=== PATIENT | female | born 1965 | race Caucasian/White ===

== ENCOUNTER 2016-12-01 14:11 | Outpatient (RCR) | payer OTHER | END 2017-01-09 14:14 | disposition still patient (30) | LOC: WSOH 14:11 | DX: S63.501A Unspecified sprain of right wrist, initial encounter (principal); R20.0 Anesthesia of skin; R20.2 Paresthesia of skin; W01.0XXA Fall on same level from slipping, tripping and stumbling without subsequent striking against object, initial encounter ==

== ENCOUNTER → 2016-12-01 | Outpatient (REF) | LOC: WSOH 14:16 | DX: Z02.89 Encounter for other administrative examinations (principal) ==

== ENCOUNTER → 2016-12-01 | Outpatient (REF) | LOC: WSOH 14:13 | DX: Z02.89 Encounter for other administrative examinations (principal) ==

== ENCOUNTER 2016-12-11 14:13 | Outpatient (RCR) | payer OTHER | END 2016-12-30 07:48 | LOC: WSOH 14:13 | DX: S63.501A Unspecified sprain of right wrist, initial encounter (principal); R20.2 Paresthesia of skin; R20.0 Anesthesia of skin; W01.0XXA Fall on same level from slipping, tripping and stumbling without subsequent striking against object, initial encounter; Y99.0 Civilian activity done for income or pay; Z90.89 Acquired absence of other organs | CPT/HCPCS: 24091; A6549 ==

== ENCOUNTER 2018-02-05 14:26 | Outpatient (RCR) | payer OTHER | END 2018-04-12 07:57 | disposition home or self-care (01) | LOC: WSOH 14:26 | DX: S46.812A Strain of other muscles, fascia and tendons at shoulder and upper arm level, left arm, initial encounter (principal); X50.0XXA Overexertion from strenuous movement or load, initial encounter; Y93.G3 Activity, cooking and baking; Y92.219 Unspecified school as the place of occurrence of the external cause; Y99.0 Civilian activity done for income or pay; Z79.899 Other long term (current) drug therapy ==

== ENCOUNTER 2018-08-17 12:39 | Inpatient (IN) | payer BC ==
[~2018-08-17] VITALS: Ht 165.1 cm; Wt 105.2 kg
[2018-08-17] VITALS (10 sets, daily range): BP systolic 109–134; BP diastolic 50–74; PULSE 57–92; TEMP 97.5–97.7
--- NOTE | 2018-08-17 13:30 | NUR ---
PATIENT ARRIVED TO ROOM 348 VIA [facility]IA [facility]. PATIENT SETTELED INTO ROOM. FAMILY PRESENT AT THE BEDSIDE.
--- NOTE | 2018-08-17 13:49 | NUR ---
DR. LEES CALLED AND NOTIFIED OF PATIENT ARRIVAL. ADMISSIONS CALLED AND NOTIFIED OF ARRIVAL.
--- NOTE | 2018-08-17 15:20 | NUR ---
PATIENT ADMISSION ASSESSMENT COMPLETE. SEE ADMISSION B. VSS. NS AND LEVAQUIN TO GRAVITY TUBING AND INFUSING TO LEFT WRIST. PATIENT CONSENT FORM SIGNED AND ON PATIENT CHART. PATIENT TAKEN TO PERIOP VIA BED BY ANTHONY CHAVIRA. WILL WAIT FOR PATIENT ARRIVAL BACK TO ROOM 348.
--- NOTE | 2018-08-17 18:40 | NUR ---
PATIENT ARRIVED TO ROOM 348 VIA BED FROM PACU. PATIENT IS DROWSY BUT AROUSES EASILY TO NAME. PATIENT TOLERATING CLEAR LIQUIDS WITHOUT COMPLAINTS OF N/V. DINNER TRAY ORDERED. ABDOMINAL LAP SITES X4 DRESSED WITH BANDAIDS AND ARE CD&I. POST-OP VSS. FAMILY PRESENT AT THE BEDSIDE. CALL LIGHT WITHIN REACH. PATIENT DENIES ANY OTHER NEEDS AT THIS TIME.
--- NOTE | 2018-08-17 18:59 | NUR ---
REPORT GIVEN TO ANTHONY OLVERA.
--- NOTE | 2018-08-18 00:12 | NUR ---
Patient resting in bed with eyes closed at this time. C/o pain 6/10 to abdomen. PRN pain medication administered. Awaiting results. Patient has been up to the bathroom to void. Slight blood drainage noted to right lap site. Bandaid changed. Other sites remain free rom drainage. Denies any further needs. Will continue to monitor.
[2018-08-18 04:00] VITALS: BP 98/44; PULSE 61; TEMP 97.9
--- NOTE | 2018-08-18 04:12 | NUR ---
Patient resting in bed watching television. States she is having troubles sleeping. Denies pain except for when she coughs or moves. Requests and receives sprite. Denies any further needs.
[2018-08-18 06:14] LABS: BASO % 0.6 % (0.0-2.0); EOS # 0.2 (0.0-0.7); EOS % 2.9 % (0-4.0); GRAN # 4.9 (1.4-6.5); GRAN % 70.8 % (42.2-75.2); HEMOGLOBIN 11.5 g/dl (12.5-16.0); LYMPH # 1.2 (1.2-3.4); LYMPH % 17.5 % (20.0-51.0); MEAN CELL VOLUME 92 fl (80.0-100.0); MEAN CORPUSCULAR HEMOGLOBIN 30 pg (27.0-31.0); MEAN CORPUSCULAR HGB CONC 32 g/dl (33.0-37.0); MONO # 0.5 (0.1-0.6); MONO % 7.9 % (1.7-9.3); PLATELET COUNT 209 K/mm3 (130-400); RED BLOOD COUNT 3.89 M/mm3 (4.10-5.30); REDCELL DISTRIBUTION WIDTH-CV 13.7 % (11.5-14.5)
[2018-08-18 06:28] LABS: ALBUMIN 3.5 gm/dL (3.5-5.0); BILIRUBIN,TOTAL 0.9 mg/dL (0.0-1.0); CALCIUM 8.6 mg/dL (8.4-10.2); CREATININE, serum 0.98 (0.52-1.25); HEMATOCRIT 35.9 % (37.0-47.0); POTASSIUM 4.1 mmol/L (3.4-5.0); TOTAL PROTEIN 6.5 gm/dL (6.4-8.2)
--- NOTE | 2018-08-18 06:53 | NUR ---
Report given to ANTHONY Boothe.
[2018-08-18 07:58] VITALS: BP 110/53; PULSE 60; TEMP 98
--- NOTE | 2018-08-18 08:44 | NUR ---
PT RESTING IN BED, ASKING FOR PAIN MEDICATION. PO PAIN MEDS GIVEN ORDERED. PT REQUESTED TO SLEEP THIS AM, REPORTING THAT SHE DID NOT SLEEP MUCH LAST NIGHT. INFORMED PT OF POSSIBLE DISCHARGE LATER TO DAY AND PT VERBALIZED UNDERSTANDING.
[2018-08-18 11:21] VITALS: BP 111/59; PULSE 63
--- NOTE | 2018-08-18 14:27 | NUR ---
SW met with patient to disucss discharge planning. Patient lives independently at home with her son and plans to return there upon discharge. Patient's PCP is Dr Patino and she obtains prescriptions from [facility]. Patient does not use any home health services or DME. Patient does not have a DPOA and is not interested in completing that form at this time. SW does not anticipate any discharge needs.
--- NOTE | 2018-08-18 16:16 | NUR ---
DISCHARGE INSTRUCTIONS PROVIDED TO PATIENT. QUESTIONS ANSWERED. PT TAKEN TO FRONT VIA WC.
== END 2018-08-18 16:45 | disposition home or self-care (01) | DRG 419 ==
LOC: SURG 12:39
PROVIDERS: ADMIT Surgery
PROC: 8E0W4CZ Robotic Assisted Procedure of Trunk Region, Percutaneous Endoscopic Approach (ICD-10-PCS; 2018-08-17)
PROC: 0FT44ZZ Resection of Gallbladder, Percutaneous Endoscopic Approach (ICD-10-PCS; principal; 2018-08-17 16:00)
DX: K80.12 Calculus of gallbladder with acute and chronic cholecystitis without obstruction (principal); E78.00 Pure hypercholesterolemia, unspecified; F17.210 Nicotine dependence, cigarettes, uncomplicated; R73.03 Prediabetes
CPT/HCPCS: G0378; G0379; J1956; J2370; J2405; J2704; J3010; J7030; J7050

== ENCOUNTER → 2018-10-12 | Outpatient (CLI) | payer BC | LOC: ZCOL.LAB 16:56 | DX: H92.11 Otorrhea, right ear (principal) ==

== ENCOUNTER → 2019-08-12 | Outpatient (CLI) | payer BC ==
[~2019-08-12] VITALS: Ht 165.1 cm; Wt 99.7 kg
[2019-08-12] VITALS (10 sets, daily range): BP systolic 101–146; BP diastolic 54–86; PULSE 64–87
[~2019-08-12] MED LIST: AMOXICILLIN 50500 MG PO; CRESTOR5 MG PO; ERY-TAB500 MG PO; FOLIC ACID0.4 MG PO; IRON TABLETS325 MG PO; MILK THISTLE500 M2 PO; MOBIC15 MG PO; MULTIPLE VITAMI1 CAP PO; PREVACID 30MG30 M1 PO; PROBIOTIC DIGE1 EACH PO; VITAMIN C500 MG PO
[2019-08-12 10:55] LABS: INR 0.9 (0.8-3.0); PROTHROMBIN TIME 10.7 SECONDS (9.7-12.8)
--- NOTE | 2019-08-12 11:05 | NUR ---
Pt to ct per ambulation. Pt positioned in supine position on ct table. Monitors applied to pt.
--- NOTE | 2019-08-12 11:13 | NUR ---
Dr Chau into talk with pt regarding procedure.
--- NOTE | 2019-08-12 11:22 | NUR ---
Specimens obtained by Dr. Chau and placed in formalin. Specimen labeled.
== END ==
LOC: COL.RAD 08-11 12:30
PROVIDERS: Internal Medicine Gastroenterology
DX: R74.8 Abnormal levels of other serum enzymes (principal)

== ENCOUNTER 2021-03-21 14:08 | Outpatient (RCR) | payer OTHER | END 2021-04-12 | disposition home or self-care (01) | LOC: WSOH | DX: S46.012A Strain of muscle(s) and tendon(s) of the rotator cuff of left shoulder, initial encounter (principal); K21.9 Gastro-esophageal reflux disease without esophagitis; E78.00 Pure hypercholesterolemia, unspecified; Z90.49 Acquired absence of other specified parts of digestive tract; Z98.890 Other specified postprocedural states; Z96.652 Presence of left artificial knee joint; Y99.0 Civilian activity done for income or pay ==